=== PATIENT | male | born 1955 | race Caucasian/White ===

== ENCOUNTER 2020-02-17 09:16 | Emergency (ER) | payer MEDICARE, MEDICAID ==
[~2020-02-17] VITALS: Ht 172.7 cm; Wt 65.9 kg
[~2020-02-17 09:16] MED LIST: HYDR-2995 PO; RISP2TAB35 PO; TRAZ-175 PO
[2020-02-17 10:49] VITALS: BP 123/83
[2020-02-17 10:52] LABS: BASOPHILS % (AUTO) 1 % (0-1); EOSINOPHILS % (AUTO) 1 % (1-7); LYMPHOCYTES % (AUTO) 16 % (22-44); MEAN CORPUSCULAR HEMOGLOBIN 30.7 pg (27.5-34.5); MEAN CORPUSCULAR HGB CONC 34.4 g/dL (33.2-36.2); MEAN PLATELET VOLUME 8.9 fL (7.4-10.4); MONOCYTES % (AUTO) 7 % (2-9); NEUTROPHILS % (AUTO) 76 % (42-75); PLATELET COUNT 166 x10^3/uL (130-400); RED BLOOD COUNT 4.46 x10^6/uL (4.38-5.82); RED CELL DISTRIBUTION WIDTH 13.2 % (9.4-14.8)
[2020-02-17 10:54] LABS: ALBUMIN 3.9 g/dL (3.4-5.0); ANION GAP 5 mmol/L (5-15); CALCIUM 8.8 mg/dL (8.5-10.1); CHLORIDE 107 mmol/L (98-107)
[2020-02-17 10:57] LABS: ALANINE AMINOTRANSFERASE 11 U/L (12-78); ALKALINE PHOSPHATASE 103 U/L (45-117); BILIRUBIN,TOTAL 0.7 mg/dL (0.2-1.0); CREATININE 1.09 mg/dL (0.7-1.3); MD NO; TOTAL PROTEIN 7.1 g/dL (6.4-8.2)
[2020-02-17] MEDS ORDERED: LIDOCAINE-MPF 1%, 5ML ONE (11:24)
[2020-02-17] MEDS ORDERED: LIDOCAINE-MPF 1%, 5ML INFIL ONE (11:30)
== END 2020-02-17 13:18 | disposition home or self-care (01) ==
LOC: ED 10:23
DX: S01.81XA Laceration without foreign body of other part of head, initial encounter (principal); S01.21XA Laceration without foreign body of nose, initial encounter; R55 Syncope and collapse; R94.31 Abnormal electrocardiogram [ECG] [EKG]; W22.8XXA Striking against or struck by other objects, initial encounter; Y93.89 Activity, other specified; Y92.89 Other specified places as the place of occurrence of the external cause; Y99.8 Other external cause status
CPT/HCPCS: 12013; 36415; 70450; 80053; 85025; 93005; 99285

== ENCOUNTER 2020-02-26 09:45 | Emergency (ER) | payer MEDICARE, MEDICAID ==
[~2020-02-26] VITALS: Ht 172.7 cm; Wt 60.8 kg
[2020-02-26 09:46] VITALS: BP 98/65
--- NOTE | 2020-02-26 09:55 | NUR ---
assumed care of pt. pt here for suture removal. no c/o at thsi time. ambulatory to room without difficulty. pt sitting upon gurney watching TV sutures in place with slight scabbing. no drainage noted
== END 2020-02-26 11:01 | disposition home or self-care (01) ==
LOC: ED 10:30
DX: S01.81XD Laceration without foreign body of other part of head, subsequent encounter (principal); X58.XXXD Exposure to other specified factors, subsequent encounter
CPT/HCPCS: 99281